=== PATIENT | male | born 1970 | race Caucasian/White ===

== ENCOUNTER 2022-06-24 19:09 | Emergency (ER) | payer BC ==
[~2022-06-24] VITALS: Ht 185.4 cm; Wt 90.9 kg
[2022-06-24 19:22] VITALS: BP 133/76
== END 2022-06-24 20:00 | disposition left against medical advice (07) ==
LOC: EMS 19:14
DX: Z53.21 Procedure and treatment not carried out due to patient leaving prior to being seen by health care provider (principal)
CPT/HCPCS: 82962